=== PATIENT | female | born 1940 | race Caucasian/White ===

== ENCOUNTER 2016-12-23 18:37 | Emergency (ER) | payer MEDICARE ==
[~2016-12-23] VITALS: Ht 167.6 cm; Wt 70.0 kg
[~2016-12-23 18:37] MED LIST: ALBUTERO1 IN; ALBUTEROL S2.5 MG/.5 IN; ALBUTEROL SUL0.083 % IN; ALLEGRA-D 1212 HOUR PO; ALPRAZOLAM0.25 MG PO; ALTOPREV20 MG OR; BAYER ASPIRIN325 MG PO; C 500 PO; CALCIUM/D250 MG PO; CIPROFLOXACN500 MG PO; CLARITIN10 M2 PO; DIGOXIN0.25 MG PO; DILTIAZEM240 M1 PO; DITROPAN OR; FLONASE NASAL50 MCG; FLULAVAL IM; LOVASTATIN10 MG PO; MAG CITRATE PO; MECLIZINE25 MG PO; MEDDOSEPAK PO; MEDROL4 M1 PO; MELOXICAM7.5 MG PO; METRONIDAZOL500 MG PO; MIRALAX3350 NF PO; MOBIC7.5 MG PO; OMEPRAZOLE20 MG OR; OMEPRAZOLE20 MG PO; OS-CAL 500500 M1 PO; OXYBUTYNIN5 MG PO; PAROXETINE20 MG PO; PROAIR HFA IN; SG ASPIRIN325 MG PO; SPIRIVA HANDIHALER IN; SPIRIVA IN; SYMBICORT1 AE1 IN; SYMBICORT1 AE1 PO; TRIAMCINOLON0.0253 EX; TRIAMCINOLON0.11 EX; VALIUM5 MG PO; VITAMIN D1000 UNIT PO; ZOFRAN4 M1 PO; ZPAK PO; ZYRTEC10 MG PO
[2016-12-23] MEDS ORDERED: DILTIAZEM HCL360 M3 PO (18:49)
[2016-12-23] MEDS ORDERED: LASIX 40 MG TAB40 MG PO (18:50)
[2016-12-23] MEDS ORDERED: DICLOFENAC SODI75 M1 PO (18:50)
[2016-12-23] MEDS ORDERED: RANITIDINE HCL150 MG PO (18:51)
[2016-12-23] MEDS ORDERED: PRILOSEC20 MG/CAP PO (18:51)
[2016-12-23] MEDS ORDERED: ALDACTONE25 MG PO (18:52)
[2016-12-23] MEDS ORDERED: KLOR-CON M2020 MEQ PO (18:52)
[2016-12-23] MEDS ORDERED: XARELTO20 MG PO (18:53)
[2016-12-23 19:50] VITALS: BP 139/74
== END 2016-12-23 19:50 | disposition home or self-care (01) ==
LOC: ED 18:37
PROC: 0HQKXZZ Repair Right Lower Leg Skin, External Approach (ICD-10-PCS; principal; 2016-12-23)
DX: S81.811A Laceration without foreign body, right lower leg, initial encounter (principal); J44.9 Chronic obstructive pulmonary disease, unspecified; K21.9 Gastro-esophageal reflux disease without esophagitis; I48.91 Unspecified atrial fibrillation; I87.2 Venous insufficiency (chronic) (peripheral); W22.8XXA Striking against or struck by other objects, initial encounter; Y92.002 Bathroom of unspecified non-institutional (private) residence as the place of occurrence of the external cause

== ENCOUNTER 2017-03-10 07:11 | Emergency (ER) | payer MEDICARE ==
[~2017-03-10] VITALS: Ht 167.6 cm; Wt 70.0 kg
[~2017-03-10 07:11] MED LIST changes: +ALDACTONE25 MG PO; +DICLOFENAC SODI75 M1 PO; +DILTIAZEM HCL360 M3 PO; +KLOR-CON M2020 MEQ PO; +LASIX 40 MG TAB40 MG PO; +PRILOSEC20 MG/CAP PO; +RANITIDINE HCL150 MG PO; +XARELTO20 MG PO
[2017-03-10] MEDS ORDERED: CALCIUM 600 +600 MG PO (07:45)
[2017-03-10] MEDS ORDERED: CLEARLAX PO (07:47)
[2017-03-10] MEDS ORDERED: DOCUSATE CAL240 MG PO (07:48)
[2017-03-10] MEDS ORDERED: SPIRIVA RE2.5 MCG/AC IN (07:51)
[2017-03-10] MEDS ORDERED: SYMBICORT1 AE1 IN (07:52)
[2017-03-10] MEDS ORDERED: TIKOSYN500 MCG PO (07:52)
[2017-03-10] MEDS ORDERED: VITAMIN D2000 UNI1 PO (07:53)
[2017-03-10] MEDS ORDERED: PREDNISONE50 MG PO (08:18)
[2017-03-10] MEDS ORDERED: DOXYCYC MONO100 M2 PO (08:18)
[2017-03-10 08:38] VITALS: BP 140/82
== END 2017-03-10 08:39 | disposition home or self-care (01) ==
LOC: ED 07:11
DX: L27.1 Localized skin eruption due to drugs and medicaments taken internally (principal); T50.995A Adverse effect of other drugs, medicaments and biological substances, initial encounter; Y92.009 Unspecified place in unspecified non-institutional (private) residence as the place of occurrence of the external cause; J44.1 Chronic obstructive pulmonary disease with (acute) exacerbation

== ENCOUNTER 2018-03-17 08:43 | Inpatient (IN) | payer MEDICARE ==
[2018-03-17] VITALS (11 sets, daily range): BP systolic 119–143; BP diastolic 47–74
[~2018-03-17] VITALS: Ht 167.6 cm; Wt 74.5 kg
[~2018-03-17 08:43] MED LIST changes: +CALCIUM 600 +600 MG PO; +CLEARLAX PO; +DOCUSATE CAL240 MG PO; +DOXYCYC MONO100 M2 PO; +PREDNISONE50 MG PO; +SPIRIVA RE2.5 MCG/AC IN; +TIKOSYN500 MCG PO; +VITAMIN D2000 UNI1 PO
[2018-03-17 09:15] LABS: HEMOGLOBIN 14.7 g/dl (12.0-16.0); IMMATURE GRANULOCYTES 2.2 % (0.0-5.0); MEAN CELL VOLUME 90.1 fL CALC (80.0-100.0); MEAN CORPUSCULAR HGB 30.8 pG CALC (26.0-32.0); MEAN CORPUSCULAR HGB CONC 34.2 g/L CALC (32.0-36.0); NEUT# 5.57 thou/uL (2.00-7.15); RED BLOOD COUNT 4.77 mill/uL (4.20-5.60); RED CELL DISTRI WIDTH 13.1 % (11.5-15.5)
[2018-03-17 09:28] LABS: ANION GAP 19 (6-22 (CALC)); BUN 19 mg/dL (8-23); BUN/CREATININE RATIO 24 (12-20 (CALC)); CARBON DIOXIDE 26 mmol/l (22-30); CHLORIDE 91 mmol/l (95-108); CREATININE 0.8 mg/dL (0.5-1.0); GFR > 60 ML/MIN (>=60 (CALC)); GFR FOR AFR.AMER. > 60 ML/MIN (>=60 (CALC)); POTASSIUM 4.1 mmol/l (3.5-5.1); SODIUM 132 mmol/l (137-146)
[2018-03-17] MEDS ORDERED: ATORVASTATIN CA20 MG PO (10:22)
[2018-03-17] MEDS ORDERED: METHOCARBAM500 MG PO (10:23)
[2018-03-17] MEDS ORDERED: TESSALON PERLE100 MG PO (10:24)
[2018-03-17 13:21] LABS: URINE BILIRUBIN - DIPSTICK NEGATIVE (NEGATIVE); URINE BLOOD DIPSTICK NEGATIVE (NEGATIVE); URINE COLOR YELLOW; URINE GLUCOSE - DIPSTICK NEGATIVE (NEGATIVE); URINE KETONE NEGATIVE (NEGATIVE); URINE LEUK ESTERASE TRACE (NEGATIVE); URINE NITRITE - DIPSTICK NEGATIVE (Negative); URINE PH 5.5 (4.5-8.0); URINE PROTEIN - DIPSTICK NEGATIVE (NEG-TRACE); URINE UROBILINOGEN - DIPSTICK 0.2 E.U./dL (0.2)
[2018-03-18 05:28] LABS: HEMATOCRIT 39.9 % (37.0-47.0); HEMOGLOBIN 13.6 g/dl (12.0-16.0); IMMATURE GRANULOCYTES 1.2 % (0.0-5.0); MEAN CELL VOLUME 89.7 fL CALC (80.0-100.0); MEAN CORPUSCULAR HGB 30.6 pG CALC (26.0-32.0); MEAN CORPUSCULAR HGB CONC 34.1 g/L CALC (32.0-36.0); NEUT# 6.97 thou/uL (2.00-7.15); RED BLOOD COUNT 4.45 mill/uL (4.20-5.60)
[2018-03-18 05:33] VITALS: BP 126/66
[2018-03-18 05:38] LABS: ANION GAP 16 (6-22 (CALC)); BUN 22 mg/dL (8-23); BUN/CREATININE RATIO 31 (12-20 (CALC)); CARBON DIOXIDE 24 mmol/l (22-30); CHLORIDE 98 mmol/l (95-108); CREATININE 0.7 mg/dL (0.5-1.0); GFR > 60 ML/MIN (>=60 (CALC)); GFR FOR AFR.AMER. > 60 ML/MIN (>=60 (CALC)); POTASSIUM 4.4 mmol/l (3.5-5.1); SODIUM 133 mmol/l (137-146)
[2018-03-18 07:10] VITALS: BP 135/63
[2018-03-18 12:00] VITALS: BP 110/62
[2018-03-18 14:40] VITALS: BP 124/56
[2018-03-18 16:04] VITALS: BP 106/57
[2018-03-18 19:15] VITALS: BP 137/69
[2018-03-19] VITALS: BP 139/61
[2018-03-19 04:15] VITALS: BP 127/63
[2018-03-19 08:49] VITALS: BP 155/59
[2018-03-19 12:00] VITALS: BP 126/52
[2018-03-19 16:05] VITALS: BP 111/59
[2018-03-19 19:10] VITALS: BP 131/52
[2018-03-20] VITALS (7 sets, daily range): BP systolic 121–156; BP diastolic 55–80
[2018-03-20 05:50] LABS: HEMATOCRIT 40.9 % (37.0-47.0); HEMOGLOBIN 13.5 g/dl (12.0-16.0); IMMATURE GRANULOCYTES 2.6 % (0.0-5.0); MEAN CELL VOLUME 92.1 fL CALC (80.0-100.0); MEAN CORPUSCULAR HGB 30.4 pG CALC (26.0-32.0); NEUT# 12.71 thou/uL (2.00-7.15); RED BLOOD COUNT 4.44 mill/uL (4.20-5.60); RED CELL DISTRI WIDTH 13.5 % (11.5-15.5)
[2018-03-20 06:24] LABS: ALBUMIN 4.2 g/dL (3.2-5.0); ALKALINE PHOSPHATASE 70 u/l (38-126); ANION GAP 17 (6-22 (CALC)); BILIRUBIN, TOTAL 0.4 mg/dL (0.0-1.4); BUN 21 mg/dL (8-23); BUN/CREATININE RATIO 28 (12-20 (CALC)); CARBON DIOXIDE 25 mmol/l (22-30); CHLORIDE 98 mmol/l (95-108); CREATININE 0.8 mg/dL (0.5-1.0); GFR > 60 ML/MIN (>=60 (CALC)); GFR FOR AFR.AMER. > 60 ML/MIN (>=60 (CALC)); MAGNESIUM 2.1 mg/dL (1.6-2.3); POTASSIUM 4.6 mmol/l (3.5-5.1); SGOT/AST 14 u/l (9-36); SODIUM 136 mmol/l (137-146); TOTAL PROTEIN 6.7 g/dL (6.3-8.2)
[2018-03-21 04:08] VITALS: BP 140/69
[2018-03-21 05:50] LABS: HEMATOCRIT 40.6 % (37.0-47.0); HEMOGLOBIN 13.5 g/dl (12.0-16.0); MEAN CELL VOLUME 92.3 fL CALC (80.0-100.0); MEAN CORPUSCULAR HGB 30.7 pG CALC (26.0-32.0); MEAN CORPUSCULAR HGB CONC 33.3 g/L CALC (32.0-36.0); NEUT# 10.6 thou/uL (2.00-7.15); RED BLOOD COUNT 4.4 mill/uL (4.20-5.60); RED CELL DISTRI WIDTH 13.3 % (11.5-15.5)
[2018-03-21 06:09] LABS: ALBUMIN 3.9 g/dL (3.2-5.0); ALKALINE PHOSPHATASE 60 u/l (38-126); ANION GAP 15 (6-22 (CALC)); BILIRUBIN, TOTAL 0.4 mg/dL (0.0-1.4); BUN 23 mg/dL (8-23); BUN/CREATININE RATIO 29 (12-20 (CALC)); CARBON DIOXIDE 27 mmol/l (22-30); CHLORIDE 98 mmol/l (95-108); CREATININE 0.8 mg/dL (0.5-1.0); GFR > 60 ML/MIN (>=60 (CALC)); GFR FOR AFR.AMER. > 60 ML/MIN (>=60 (CALC)); MAGNESIUM 2.2 mg/dL (1.6-2.3); POTASSIUM 4.8 mmol/l (3.5-5.1); SGOT/AST 13 u/l (9-36); SODIUM 136 mmol/l (137-146); TOTAL PROTEIN 6.4 g/dL (6.3-8.2)
[2018-03-21 07:47] VITALS: BP 158/69
[2018-03-21 11:29] VITALS: BP 130/69
[2018-03-21] MEDS ORDERED: DIFLUCAN100 MG PO (15:36)
[2018-03-21] MEDS ORDERED: DOXYCYCL HYC100 MG PO (15:36)
[2018-03-21] MEDS ORDERED: MEDDOSEPAK PO (15:36)
[2018-03-21 15:53] VITALS: BP 131/70
== END 2018-03-21 15:54 | disposition home or self-care (01) | DRG 191 ==
LOC: ED 08:43 → ED-I 09:52 → ED 10:25 → ICU 10:26 → MS2 10:26
PROVIDERS: Family Medicine; Internal Medicine Nephrology; ADMIT Internal Medicine; ATTEND Internal Medicine
PROC: 5A09357 Assistance with Respiratory Ventilation, Less than 24 Consecutive Hours, Continuous Positive Airway Pressure (ICD-10-PCS; principal; 2018-03-17)
PROC: 3E02340 Introduction of Influenza Vaccine into Muscle, Percutaneous Approach (ICD-10-PCS; 2018-03-18)
DX: J44.1 Chronic obstructive pulmonary disease with (acute) exacerbation (principal); B37.0 Candidal stomatitis; J20.9 Acute bronchitis, unspecified; J44.0 Chronic obstructive pulmonary disease with (acute) lower respiratory infection; I10 Essential (primary) hypertension; E78.5 Hyperlipidemia, unspecified; I48.2 Chronic atrial fibrillation; M19.90 Unspecified osteoarthritis, unspecified site; K21.9 Gastro-esophageal reflux disease without esophagitis; Z23 Encounter for immunization; Z79.01 Long term (current) use of anticoagulants